=== PATIENT | male | born 1940 | race Asian ===

== ENCOUNTER 2018-05-09 16:45 | Inpatient (IN) | payer OTHER ==
[2018-05-09 17:17] LABS: ADD MAN DIFF? NO
[2018-05-09 17:18] LABS: ABNORMAL IP MESSAGE 1; BASOPHILS % 0.5 % (0.0-2.0); EOSINOPHILS # 0.1 10^3/ul (0.0-0.5); EOSINOPHILS % 1.4 % (0.0-7.0); HEMATOCRIT 32.4 % (42.0-52.0); HEMOGLOBIN 10.8 g/dl (14.0-18.0); LYMPHOCYTES # 0.7 10^3/ul (0.8-2.9); LYMPHOCYTES % 12.6 % (15.0-51.0); MEAN CORPUSCULAR HEMOGLOBIN 32.3 pg (29.0-33.0); MEAN CORPUSCULAR HGB CONC 33.3 g/dl (32.0-37.0); MEAN PLATELET VOLUME 10.7 fl (7.4-10.4); MONOCYTE # 0.3 10^3/ul (0.3-0.9); MONOCYTES % 5.4 % (0.0-11.0); NEUTROPHIL # 4.6 10^3/ul (1.6-7.5); NEUTROPHILS % 79.8 % (39.0-77.0); PLATELET COUNT 83 10^3/UL (140-415); POSITIVE DIFF @See below; RED BLOOD COUNT 3.34 10^6/ul (4.70-6.10); RED CELL DISTRIBUTION WIDTH 15.3 % (11.5-14.5)
[2018-05-09 17:18] LABS: WHITE BLOOD COUNT 5.7 10^3/ul (4.8-10.8)
[2018-05-09] MEDS: ONDANSETRON 4 MG INJ IV (17:35)
[2018-05-09] MEDS: morphine 2 MG INJ IV (17:35)
[2018-05-09] MEDS: HEPARIN 1000 UNITS/ML 10 ML INJ IV ×2 (17:36→20:30)
[2018-05-09 17:38] LABS: ANION GAP 13 (5-13); BLOOD UREA NITROGEN 21 mg/dl (7-20); CALCIUM 9.4 mg/dl (8.4-10.2); CARBON DIOXIDE 31 mmol/L (21-31); CHLORIDE 96 mmol/L (97-110); CREATININE 4.69 mg/dl (0.61-1.24); GLUCOSE 103 mg/dl (70-220); POTASSIUM 4.3 mmol/L (3.5-5.1); SODIUM 140 mmol/L (135-144)
[2018-05-09] MEDS: NITROGLYCERIN 50 MG/D5W (PMX) 250 ML IV ×2 (17:41→23:03)
[2018-05-09 17:49] LABS: TROPONIN-I < 0.012 ng/ml (0.000-0.120)
[2018-05-09] MEDS ORDERED: BISACODYL (EC) 5 MG TAB PO (20:30)
[2018-05-09] MEDS ORDERED: ACETAMINOPHEN 650MG/20.3ML CUP PO (20:30)
[2018-05-09] MEDS ORDERED: ONDANSETRON 4 MG INJ IV (20:30)
[2018-05-09] MEDS ORDERED: DOCUSATE SODIUM 100 MG CAP PO (20:30)
[2018-05-09] MEDS ORDERED: HEPARIN 1000 UNITS/ML 10 ML INJ IV (20:30)
[2018-05-09 20:46] LABS: INR 1.15; PROTIME 14.8 Sec (11.9-14.9); PT RATIO 1.2
[2018-05-09 20:48] LABS: PARTIAL THROMBOPLASTIN TIME 69.9 Sec (23.0-35.0)
[2018-05-09 21:09] LABS: ADD MAN DIFF? NO
[2018-05-09 21:15] LABS: WHITE BLOOD COUNT 6.2 10^3/ul (4.8-10.8)
[2018-05-09 21:15] LABS: ABNORMAL IP MESSAGE 1; BASOPHILS % 0.5 % (0.0-2.0); EOSINOPHILS # 0.1 10^3/ul (0.0-0.5); HEMATOCRIT 31.4 % (42.0-52.0); HEMOGLOBIN 10.3 g/dl (14.0-18.0); LYMPHOCYTES # 0.7 10^3/ul (0.8-2.9); LYMPHOCYTES % 11.1 % (15.0-51.0); MEAN CORPUSCULAR HEMOGLOBIN 32.5 pg (29.0-33.0); MEAN CORPUSCULAR HGB CONC 32.8 g/dl (32.0-37.0); MEAN CORPUSCULAR VOLUME 99.1 fl (82.0-101.0); MEAN PLATELET VOLUME 10.9 fl (7.4-10.4); MONOCYTE # 0.4 10^3/ul (0.3-0.9); MONOCYTES % 6.7 % (0.0-11.0); NEUTROPHIL # 4.9 10^3/ul (1.6-7.5); NEUTROPHILS % 80.2 % (39.0-77.0); PLATELET COUNT 80 10^3/UL (140-415); POSITIVE DIFF @See below; RED BLOOD COUNT 3.17 10^6/ul (4.70-6.10); RED CELL DISTRIBUTION WIDTH 15.2 % (11.5-14.5)
[2018-05-09] MEDS: CLOPIDOGREL 75 MG TAB PO (21:26)
[2018-05-09 22:13] LABS: PARTIAL THROMBOPLASTIN TIME 58.6 Sec (23.0-35.0)
[2018-05-09] MEDS: HEPARIN 25000 UNITS/250 ML 250 ML IV (22:36)
[2018-05-09 23:04] LABS: CREATINE KINASE 71 IU/L (23-200)
[2018-05-09 23:16] LABS: CK INDEX 3.8
[2018-05-09 23:22] LABS: CK-MB 2.71 ng/ml (0.0-2.4)
[2018-05-09 23:24] LABS: TROPONIN-I 0.193 ng/ml (0.000-0.120)
[2018-05-10 05:31] LABS: ADD MAN DIFF? NO
[2018-05-10 05:37] LABS: WHITE BLOOD COUNT 6.3 10^3/ul (4.8-10.8)
[2018-05-10 05:37] LABS: ABNORMAL IP MESSAGE 1; BASOPHILS % 0.5 % (0.0-2.0); EOSINOPHILS % 0.2 % (0.0-7.0); HEMATOCRIT 31.3 % (42.0-52.0); HEMOGLOBIN 10.2 g/dl (14.0-18.0); LYMPHOCYTES # 0.7 10^3/ul (0.8-2.9); LYMPHOCYTES % 10.9 % (15.0-51.0); MEAN CORPUSCULAR HEMOGLOBIN 32.5 pg (29.0-33.0); MEAN CORPUSCULAR HGB CONC 32.6 g/dl (32.0-37.0); MEAN CORPUSCULAR VOLUME 99.7 fl (82.0-101.0); MEAN PLATELET VOLUME 11.7 fl (7.4-10.4); MONOCYTE # 0.6 10^3/ul (0.3-0.9); MONOCYTES % 8.9 % (0.0-11.0); NEUTROPHILS % 79.2 % (39.0-77.0); PLATELET COUNT 69 10^3/UL (140-415); POSITIVE DIFF @See below; RED BLOOD COUNT 3.14 10^6/ul (4.70-6.10); RED CELL DISTRIBUTION WIDTH 15.4 % (11.5-14.5)
[2018-05-10 06:02] LABS: ALANINE AMINOTRANSFERASE 381 IU/L (13-69); ALBUMIN 4.3 g/dl (3.3-4.9); ALKALINE PHOSPHATASE 64 IU/L (42-121); ANION GAP 15 (5-13); ASPARTATE AMINO TRANSFERASE 539 IU/L (15-46); BILIRUBIN,INDIRECT 0.6 mg/dl (0-1.1); BILIRUBIN,TOTAL 0.6 mg/dl (0.2-1.3); BLOOD UREA NITROGEN 31 mg/dl (7-20); CARBON DIOXIDE 31 mmol/L (21-31); CHLORIDE 95 mmol/L (97-110); CHOL/HDL RATIO 2.2 RATIO; CHOLESTEROL 78 mg/dl (100-200); CREATININE 6.82 mg/dl (0.61-1.24); GLUCOSE 110 mg/dl (70-220); HDL CHOLESTEROL 34 mg/dl (31-75); LDL CHOLESTEROL,CALCULATED 25 mg/dl; POTASSIUM 5.6 mmol/L (3.5-5.1); SODIUM 141 mmol/L (135-144); TOTAL PROTEIN 7.6 g/dl (6.1-8.1); TRIGLYCERIDES 96 mg/dl (0-149)
[2018-05-10 06:05] LABS: CREATINE KINASE 198 IU/L (23-200)
[2018-05-10 06:09] LABS: INR 1.34; PROTIME 16.7 Sec (11.9-14.9); PT RATIO 1.3
[2018-05-10 06:13] LABS: FREE T4 (FREE THYROXINE) 1.37 ng/dl (0.85-1.93)
[2018-05-10 06:14] LABS: CK INDEX 3.4
[2018-05-10 06:20] LABS: CK-MB 6.79 ng/ml (0.0-2.4)
[2018-05-10 06:28] LABS: THYROID STIMULATING HORMONE 0.086 MIU/L (0.465-4.680)
[2018-05-10] MEDS: PANTOPRAZOLE 40 MG INJ IV (06:48)
[2018-05-10] MEDS: ASPIRIN (EC) 81 MG TAB PO ×2 (08:30→18:07)
[2018-05-10] MEDS: METOPROLOL 25 MG TAB PO ×2 (09:00→21:00)
[2018-05-10] MEDS: CITRIC ACID/NA CIT (1 MEQ/ML POSYG) PO (09:00)
[2018-05-10 10:38] LABS: CREATINE KINASE 210 IU/L (23-200)
[2018-05-10 10:46] LABS: PARTIAL THROMBOPLASTIN TIME 160.7 Sec (23.0-35.0)
[2018-05-10 10:52] LABS: CK INDEX 2.6
[2018-05-10 10:59] LABS: CK-MB 5.38 ng/ml (0.0-2.4)
[2018-05-10] MEDS: ISOSORBIDE MONONITRATE(SR)60 MG TAB PO (11:41)
[2018-05-10] MEDS: CLOPIDOGREL 75 MG TAB PO (11:41)
[2018-05-10] MEDS: FERROUS SULFATE (EC) 325 MG TAB PO ×2 (11:41→20:35)
[2018-05-10] MEDS: SEVELAMER CARBONATE 0.8 GM PKT PO ×2 (11:47→18:07)
[2018-05-10 13:32] LABS: HEPATITIS B SURFACE ANTIGEN NEGATIVE (NEGATIVE)
[2018-05-10 13:49] LABS: HEPATITIS B SURFACE ANTIBODY NEGATIVE (NEGATIVE)
[2018-05-10] MEDS: CALCITRIOL 0.25 MCG CAP PO (18:07)
[2018-05-10] MEDS: ATORVASTATIN 40 MG TAB PO (20:35)
[2018-05-10 20:47] LABS: PARTIAL THROMBOPLASTIN TIME 104.4 Sec (23.0-35.0)
[2018-05-10] MEDS: BENZONATATE 100 MG CAP PO (23:32)
[2018-05-11 04:13] LABS: ADD MAN DIFF? NO
[2018-05-11 04:22] LABS: WHITE BLOOD COUNT 5.7 10^3/ul (4.8-10.8)
[2018-05-11 04:22] LABS: ABNORMAL IP MESSAGE 1; BASOPHIL # 0.1 10^3/ul (0.0-0.1); BASOPHILS % 0.9 % (0.0-2.0); EOSINOPHILS # 0.1 10^3/ul (0.0-0.5); EOSINOPHILS % 1.6 % (0.0-7.0); HEMATOCRIT 29.4 % (42.0-52.0); HEMOGLOBIN 9.7 g/dl (14.0-18.0); LYMPHOCYTES # 1.1 10^3/ul (0.8-2.9); LYMPHOCYTES % 20.1 % (15.0-51.0); MEAN CORPUSCULAR HEMOGLOBIN 32.7 pg (29.0-33.0); MONOCYTE # 0.5 10^3/ul (0.3-0.9); MONOCYTES % 9.4 % (0.0-11.0); NEUTROPHIL # 3.8 10^3/ul (1.6-7.5); NEUTROPHILS % 67.8 % (39.0-77.0); PLATELET COUNT 74 10^3/UL (140-415); POSITIVE DIFF @See below; RED BLOOD COUNT 2.97 10^6/ul (4.70-6.10); RED CELL DISTRIBUTION WIDTH 15.3 % (11.5-14.5)
[2018-05-11 04:58] LABS: CREATINE KINASE 170 IU/L (23-200)
[2018-05-11 05:01] LABS: ALANINE AMINOTRANSFERASE 591 IU/L (13-69); ALBUMIN 3.7 g/dl (3.3-4.9); ALBUMIN/GLOBULIN RATIO 1.37; ALKALINE PHOSPHATASE 55 IU/L (42-121); ANION GAP 9 (5-13); BILIRUBIN,INDIRECT 0.5 mg/dl (0-1.1); BILIRUBIN,TOTAL 0.5 mg/dl (0.2-1.3); BLOOD UREA NITROGEN 34 mg/dl (7-20); CALCIUM 8.4 mg/dl (8.4-10.2); CARBON DIOXIDE 32 mmol/L (21-31); CHLORIDE 96 mmol/L (97-110); CREATININE 5.64 mg/dl (0.61-1.24); GLUCOSE 94 mg/dl (70-220); POTASSIUM 5.2 mmol/L (3.5-5.1); SODIUM 137 mmol/L (135-144); TOTAL PROTEIN 6.4 g/dl (6.1-8.1)
[2018-05-11 05:06] LABS: PHOSPHORUS 5.7 mg/dl (2.5-4.9)
[2018-05-11 05:06] LABS: MAGNESIUM 2.1 mg/dl (1.7-2.5)
[2018-05-11 05:10] LABS: ASPARTATE AMINO TRANSFERASE 791 IU/L (15-46); CK INDEX 2.3; CK-MB 3.99 ng/ml (0.0-2.4)
[2018-05-11 05:18] LABS: PARTIAL THROMBOPLASTIN TIME 76.2 Sec (23.0-35.0)
[2018-05-11] MEDS: PANTOPRAZOLE 40 MG INJ IV (05:51)
[2018-05-11] MEDS ORDERED: MIDAZOLAM 1 MG/ML 2 ML INJ (07:12)
[2018-05-11] MEDS ORDERED: LIDOCAINE 1% (MDV) 20 ML INJ ×2 (07:12→09:57)
[2018-05-11] MEDS ORDERED: NITROGLYCERIN (IC) 100 MCG/ML INJ (07:12)
[2018-05-11] MEDS ORDERED: VERAPAMIL 5 MG INJ (07:12)
[2018-05-11] MEDS ORDERED: FENTAnyl 50 MCG/ML VIAL (07:12)
[2018-05-11] MEDS ORDERED: HEPARIN 1000 UNITS/ML 10 ML INJ (07:12)
[2018-05-11] MEDS: SEVELAMER CARBONATE 0.8 GM PKT PO ×3 (07:35→18:12)
[2018-05-11] MEDS ORDERED: SOD CHLORIDE 0.9% 500 ML (08:06)
[2018-05-11] MEDS ORDERED: BIVALIRUDIN 250MG /NS 50 ML 50 ML IVPB (08:09)
[2018-05-11] MEDS ORDERED: IOHEXOL 350MG/ML 50 ML BTL (08:27)
[2018-05-11] MEDS: CLOPIDOGREL 75 MG TAB PO (09:00)
[2018-05-11] MEDS: CALCITRIOL 0.25 MCG CAP PO (09:00)
[2018-05-11] MEDS: ISOSORBIDE MONONITRATE(SR)60 MG TAB PO (09:00)
[2018-05-11] MEDS: ASPIRIN (EC) 81 MG TAB PO (09:00)
[2018-05-11] MEDS: FERROUS SULFATE (EC) 325 MG TAB PO ×2 (09:00→20:46)
[2018-05-11] MEDS ORDERED: CITRIC ACID/NA CITRATE 30 ML CUP PO (09:00)
[2018-05-11] MEDS ORDERED: IODIXANOL LOCM 100 ML BTL (09:06)
[2018-05-11] MEDS ORDERED: CLOPIDOGREL 300 MG TAB (09:42)
[2018-05-11] MEDS ORDERED: ACETAMINOPHEN 325 MG TAB PO (10:30)
[2018-05-11] MEDS ORDERED: OXYCODONE/ACETAMINOPHEN (5/325) TAB PO (10:30)
[2018-05-11] MEDS: SOD CHLORIDE 0.9% 1,000 ML IV (11:18)
[2018-05-11] MEDS: EPOETIN 10000 UNITS/1 ML INJ (ESRD) SC (12:17)
[2018-05-11 12:30] LABS: PARTIAL THROMBOPLASTIN TIME > 180.0 Sec (23.0-35.0)
[2018-05-11] MEDS ORDERED: ATROPINE 1 MG/10 ML SYRINGE (13:36)
[2018-05-11] MEDS: ATORVASTATIN 40 MG TAB PO (20:46)
[2018-05-12] MEDS: PANTOPRAZOLE 40 MG INJ IV (05:11)
[2018-05-12] MEDS: SOD CHLORIDE 0.9% 1,000 ML IV (05:11)
[2018-05-12 05:30] LABS: ADD MAN DIFF? NO
[2018-05-12 05:40] LABS: ABNORMAL IP MESSAGE 1; BASOPHILS % 0.4 % (0.0-2.0); EOSINOPHILS # 0.2 10^3/ul (0.0-0.5); EOSINOPHILS % 2.3 % (0.0-7.0); HEMATOCRIT 27.4 % (42.0-52.0); HEMOGLOBIN 8.9 g/dl (14.0-18.0); LYMPHOCYTES % 13.2 % (15.0-51.0); MEAN CORPUSCULAR HEMOGLOBIN 31.7 pg (29.0-33.0); MEAN CORPUSCULAR HGB CONC 32.5 g/dl (32.0-37.0); MEAN CORPUSCULAR VOLUME 97.5 fl (82.0-101.0); MEAN PLATELET VOLUME 12.3 fl (7.4-10.4); MONOCYTE # 0.7 10^3/ul (0.3-0.9); NEUTROPHIL # 5.4 10^3/ul (1.6-7.5); NEUTROPHILS % 74.8 % (39.0-77.0); PLATELET COUNT 84 10^3/UL (140-415); POSITIVE DIFF @See below; RED BLOOD COUNT 2.81 10^6/ul (4.70-6.10)
[2018-05-12 05:40] LABS: WHITE BLOOD COUNT 7.3 10^3/ul (4.8-10.8)
[2018-05-12 06:00] LABS: ALANINE AMINOTRANSFERASE 588 IU/L (13-69); ALBUMIN 3.2 g/dl (3.3-4.9); ALKALINE PHOSPHATASE 55 IU/L (42-121); ASPARTATE AMINO TRANSFERASE 443 IU/L (15-46); BILIRUBIN,INDIRECT 0.5 mg/dl (0-1.1); BILIRUBIN,TOTAL 0.5 mg/dl (0.2-1.3)
[2018-05-12 06:05] LABS: ANION GAP 13 (5-13); BLOOD UREA NITROGEN 28 mg/dl (7-20); CARBON DIOXIDE 30 mmol/L (21-31); CHLORIDE 94 mmol/L (97-110); GLUCOSE 92 mg/dl (70-220); PHOSPHORUS 5.1 mg/dl (2.5-4.9); POTASSIUM 4.4 mmol/L (3.5-5.1); SODIUM 137 mmol/L (135-144)
[2018-05-12 06:49] LABS: HEPATITIS C VIRAL ANTIBODY NEGATIVE (NEGATIVE)
[2018-05-12] MEDS: ASPIRIN (EC) 81 MG TAB PO (08:41)
[2018-05-12] MEDS: CLOPIDOGREL 75 MG TAB PO (08:41)
[2018-05-12] MEDS: ISOSORBIDE MONONITRATE(SR)60 MG TAB PO (08:41)
[2018-05-12] MEDS: FERROUS SULFATE (EC) 325 MG TAB PO ×2 (08:41→20:11)
[2018-05-12] MEDS: CALCITRIOL 0.25 MCG CAP PO (08:41)
[2018-05-12] MEDS: SEVELAMER CARBONATE 0.8 GM PKT PO ×3 (08:41→17:08)
[2018-05-12] MEDS: ATORVASTATIN 40 MG TAB PO (20:11)
[2018-05-12] MEDS: BENZONATATE 100 MG CAP PO (23:56)
[2018-05-13] MEDS: PANTOPRAZOLE 40 MG INJ IV (05:47)
[2018-05-13 05:51] LABS: ADD MAN DIFF? NO
[2018-05-13 05:54] LABS: BASOPHILS % 0.4 % (0.0-2.0); EOSINOPHILS # 0.2 10^3/ul (0.0-0.5); EOSINOPHILS % 3.2 % (0.0-7.0); HEMATOCRIT 25.2 % (42.0-52.0); HEMOGLOBIN 8.3 g/dl (14.0-18.0); LYMPHOCYTES # 1.1 10^3/ul (0.8-2.9); LYMPHOCYTES % 15.5 % (15.0-51.0); MEAN CORPUSCULAR HEMOGLOBIN 31.8 pg (29.0-33.0); MEAN CORPUSCULAR HGB CONC 32.9 g/dl (32.0-37.0); MEAN CORPUSCULAR VOLUME 96.6 fl (82.0-101.0); MEAN PLATELET VOLUME 11.4 fl (7.4-10.4); MONOCYTE # 0.7 10^3/ul (0.3-0.9); MONOCYTES % 9.9 % (0.0-11.0); NEUTROPHIL # 4.9 10^3/ul (1.6-7.5); NEUTROPHILS % 70.6 % (39.0-77.0); PLATELET COUNT 104 10^3/UL (140-415); RED BLOOD COUNT 2.61 10^6/ul (4.70-6.10)
[2018-05-13 06:22] LABS: CREATINE KINASE 80 IU/L (23-200)
[2018-05-13 06:26] LABS: PARTIAL THROMBOPLASTIN TIME 69.1 Sec (23.0-35.0)
[2018-05-13 06:28] LABS: ALANINE AMINOTRANSFERASE 491 IU/L (13-69); ALBUMIN 3.2 g/dl (3.3-4.9); ALBUMIN/GLOBULIN RATIO 1.23; ALKALINE PHOSPHATASE 69 IU/L (42-121); ANION GAP 12 (5-13); ASPARTATE AMINO TRANSFERASE 267 IU/L (15-46); BILIRUBIN,INDIRECT 0.3 mg/dl (0-1.1); BILIRUBIN,TOTAL 0.3 mg/dl (0.2-1.3); BLOOD UREA NITROGEN 42 mg/dl (7-20); CALCIUM 8.1 mg/dl (8.4-10.2); CARBON DIOXIDE 29 mmol/L (21-31); CHLORIDE 96 mmol/L (97-110); CREATININE 7.12 mg/dl (0.61-1.24); GLUCOSE 94 mg/dl (70-220); POTASSIUM 4.4 mmol/L (3.5-5.1); SODIUM 137 mmol/L (135-144); TOTAL PROTEIN 5.8 g/dl (6.1-8.1)
[2018-05-13 06:32] LABS: INR 1.22; PROTIME 15.5 Sec (11.9-14.9); PT RATIO 1.2
[2018-05-13 06:35] LABS: CK INDEX 2.9; CK-MB 2.35 ng/ml (0.0-2.4)
[2018-05-13] MEDS: SEVELAMER CARBONATE 0.8 GM PKT PO ×3 (07:35→19:43)
[2018-05-13] MEDS: CLOPIDOGREL 75 MG TAB PO (08:19)
[2018-05-13] MEDS: ASPIRIN (EC) 81 MG TAB PO (08:19)
[2018-05-13] MEDS: FERROUS SULFATE (EC) 325 MG TAB PO ×2 (08:30→21:10)
[2018-05-13] MEDS: VERAPAMIL 4 MG, NITROGLYCERIN 4 MG, HEPARIN (10000 UNITS/ML) 20,000 UNIT, LIDOCAINE 2% ... IV (08:30)
[2018-05-13] MEDS: ISOSORBIDE MONONITRATE(SR)60 MG TAB PO (08:31)
[2018-05-13] MEDS: CALCITRIOL 0.25 MCG CAP PO (08:31)
[2018-05-13] MEDS ORDERED: SOD CHLORIDE 0.9% 500 ML (10:24)
[2018-05-13] MEDS ORDERED: IOHEXOL 350MG/ML 50 ML BTL (10:24)
[2018-05-13] MEDS ORDERED: VERAPAMIL 5 MG INJ (10:24)
[2018-05-13] MEDS ORDERED: FENTAnyl 50 MCG/ML VIAL (10:24)
[2018-05-13] MEDS ORDERED: HEPARIN 1000 UNITS/ML 10 ML INJ (10:24)
[2018-05-13] MEDS ORDERED: LIDOCAINE 1% (MDV) 20 ML INJ (10:24)
[2018-05-13] MEDS ORDERED: IODIXANOL LOCM 100 ML BTL (10:24)
[2018-05-13] MEDS ORDERED: MIDAZOLAM 1 MG/ML 2 ML INJ (10:24)
[2018-05-13] MEDS ORDERED: NITROGLYCERIN (IC) 100 MCG/ML INJ (10:24)
[2018-05-13] MEDS ORDERED: NORepinephrine 8MG/250 ML (PMX 250 ML IV ×2 (12:30)
[2018-05-13] MEDS ORDERED: BIVALIRUDIN 250MG /NS 50 ML 50 ML IVPB (13:25)
[2018-05-13] MEDS: SOD CHLORIDE 0.9% 1,000 ML IV (14:32)
[2018-05-13] MEDS: ATORVASTATIN 40 MG TAB PO (21:10)
[2018-05-14] MEDS: BENZONATATE 100 MG CAP PO ×2 (01:14→16:55)
[2018-05-14 05:54] LABS: ADD MAN DIFF? NO
[2018-05-14 06:03] LABS: BASOPHILS % 0.6 % (0.0-2.0); EOSINOPHILS # 0.1 10^3/ul (0.0-0.5); HEMATOCRIT 24.8 % (42.0-52.0); HEMOGLOBIN 8.2 g/dl (14.0-18.0); LYMPHOCYTES # 0.6 10^3/ul (0.8-2.9); LYMPHOCYTES % 11.4 % (15.0-51.0); MEAN CORPUSCULAR HEMOGLOBIN 32.4 pg (29.0-33.0); MEAN CORPUSCULAR HGB CONC 33.1 g/dl (32.0-37.0); MEAN PLATELET VOLUME 10.9 fl (7.4-10.4); MONOCYTE # 0.5 10^3/ul (0.3-0.9); MONOCYTES % 8.7 % (0.0-11.0); NEUTROPHIL # 4.2 10^3/ul (1.6-7.5); NEUTROPHILS % 76.9 % (39.0-77.0); PLATELET COUNT 128 10^3/UL (140-415); RED BLOOD COUNT 2.53 10^6/ul (4.70-6.10); RED CELL DISTRIBUTION WIDTH 14.7 % (11.5-14.5)
[2018-05-14 06:03] LABS: WHITE BLOOD COUNT 5.4 10^3/ul (4.8-10.8)
[2018-05-14 06:28] LABS: ALANINE AMINOTRANSFERASE 369 IU/L (13-69); ALBUMIN 3.3 g/dl (3.3-4.9); ALKALINE PHOSPHATASE 63 IU/L (42-121); ANION GAP 13 (5-13); ASPARTATE AMINO TRANSFERASE 135 IU/L (15-46); BILIRUBIN,INDIRECT 0.7 mg/dl (0-1.1); BILIRUBIN,TOTAL 0.7 mg/dl (0.2-1.3); BLOOD UREA NITROGEN 26 mg/dl (7-20); CALCIUM 8.3 mg/dl (8.4-10.2); CARBON DIOXIDE 29 mmol/L (21-31); CHLORIDE 96 mmol/L (97-110); CREATININE 5.27 mg/dl (0.61-1.24); GLUCOSE 100 mg/dl (70-220); MAGNESIUM 1.8 mg/dl (1.7-2.5); POTASSIUM 4.1 mmol/L (3.5-5.1); SODIUM 138 mmol/L (135-144); TOTAL PROTEIN 6.3 g/dl (6.1-8.1)
[2018-05-14 06:32] LABS: PARTIAL THROMBOPLASTIN TIME 88.7 Sec (23.0-35.0)
[2018-05-14] MEDS: PANTOPRAZOLE 40 MG INJ IV (06:36)
[2018-05-14 06:54] LABS: INR 1.29; PROTIME 16.2 Sec (11.9-14.9); PT RATIO 1.3
[2018-05-14] MEDS: CALCITRIOL 0.25 MCG CAP PO (09:30)
[2018-05-14] MEDS: CLOPIDOGREL 75 MG TAB PO (09:30)
[2018-05-14] MEDS: SEVELAMER CARBONATE 0.8 GM PKT PO ×3 (09:30→17:58)
[2018-05-14] MEDS: FERROUS SULFATE (EC) 325 MG TAB PO (09:30)
[2018-05-14] MEDS: ASPIRIN (EC) 81 MG TAB PO (09:32)
[2018-05-14] MEDS: EPOETIN 10000 UNITS/1 ML INJ (ESRD) SC (09:33)
[2018-05-14] MEDS: ISOSORBIDE MONONITRATE(SR)60 MG TAB PO (09:33)
[2018-05-14] MEDS: DOCUSATE SODIUM 100 MG CAP PO (10:52)
[2018-05-14] MEDS ORDERED: ATORVASTATIN 80 MG TAB PO (21:00)
[2018-05-14] MEDS ORDERED: ATORVASTATIN 20 MG TAB PO (21:00)
[2018-05-15] MEDS ORDERED: PANTOPRAZOLE (EC) 40 MG TAB PO (06:00)
[2018-05-15] MEDS ORDERED: LISINOPRIL 5 MG TAB PO (09:00)
[2018-05-17] MEDS ORDERED: DOCUSATE SODIUM 100 MG CAP PO (09:00)
== END 2018-05-14 20:15 | disposition short-term general hospital (02) | DRG 270 ==
LOC: ICU 05-12 07:29 → E/R 16:45 → ICU 19:45
PROC: 027036Z Dilation of Coronary Artery, One Artery with Three Drug-eluting Intraluminal Devices, Percutaneous Approach (ICD-10-PCS; principal; 2018-05-11 07:23)
PROC: 5A02210 Assistance with Cardiac Output using Balloon Pump, Continuous (ICD-10-PCS; 2018-05-11 07:23)
PROC: 027135Z Dilation of Coronary Artery, Two Arteries with Two Drug-eluting Intraluminal Devices, Percutaneous Approach (ICD-10-PCS; 2018-05-11 07:23)
PROC: 5A02210 Assistance with Cardiac Output using Balloon Pump, Continuous (ICD-10-PCS; 2018-05-11 07:23)
PROC: 4A023N7 Measurement of Cardiac Sampling and Pressure, Left Heart, Percutaneous Approach (ICD-10-PCS; 2018-05-11 07:23)
PROC: B211YZZ Fluoroscopy of Multiple Coronary Arteries using Other Contrast (ICD-10-PCS; 2018-05-11 07:23)
PROC: B212YZZ Fluoroscopy of Single Coronary Artery Bypass Graft using Other Contrast (ICD-10-PCS; 2018-05-11 07:23)
PROC: B310YZZ Fluoroscopy of Thoracic Aorta using Other Contrast (ICD-10-PCS; 2018-05-11 07:23)
PROC: 4A023N7 Measurement of Cardiac Sampling and Pressure, Left Heart, Percutaneous Approach (ICD-10-PCS; 2018-05-11 07:23)
PROC: B211YZZ Fluoroscopy of Multiple Coronary Arteries using Other Contrast (ICD-10-PCS; 2018-05-11 07:23)
PROC: 5A1D70Z Performance of Urinary Filtration, Intermittent, Less than 6 Hours Per Day (ICD-10-PCS; 2018-05-11 07:23)
DX: I21.19 ST elevation (STEMI) myocardial infarction involving other coronary artery of inferior wall (principal); N18.6 End stage renal disease; I50.43 Acute on chronic combined systolic (congestive) and diastolic (congestive) heart failure; I13.2 Hypertensive heart and chronic kidney disease with heart failure and with stage 5 chronic kidney disease, or end stage renal disease; T82.855A Stenosis of coronary artery stent, initial encounter; I24.9 Acute ischemic heart disease, unspecified; I25.10 Atherosclerotic heart disease of native coronary artery without angina pectoris; D63.1 Anemia in chronic kidney disease; E78.5 Hyperlipidemia, unspecified; E87.5 Hyperkalemia; I36.1 Nonrheumatic tricuspid (valve) insufficiency; I27.20 Pulmonary hypertension, unspecified; R94.5 Abnormal results of liver function studies; R94.6 Abnormal results of thyroid function studies; Y83.8 Other surgical procedures as the cause of abnormal reaction of the patient, or of later complication, without mention of misadventure at the time of the procedure; I25.2 Old myocardial infarction; Z95.5 Presence of coronary angioplasty implant and graft; Z95.1 Presence of aortocoronary bypass graft; Z99.2 Dependence on renal dialysis; Z79.02 Long term (current) use of antithrombotics/antiplatelets; Z79.82 Long term (current) use of aspirin
CPT/HCPCS: 36415; 71045; 71250; 76705; 80048; 80053; 80061; 80076; 82550; 82553; 83735; 84100; 84439; 84443; 84484; 85025; 85610; 85730; 86706; 86803; 87081; 87340; 90935; 92933; 93005; 93306; 93458; 93459; 96365; 96366; 96375; 99291-25